=== PATIENT | female | born 1975 | race Caucasian/White ===

== ENCOUNTER 2018-01-12 09:01 | Outpatient (CLI) | payer BC ==
--- NOTE | 2018-01-12 11:52 | ULT ---
ULTRASOUND RIGHT BREAST: HISTORY: Palpable abnormality. COMPARISON: Mammogram from the same day. Mammogram from 09/16/2014 FINDINGS: There is no abnormal mass. There is a small focal island of breast tissue, corresponding to the palp able abnormality, which is cord-like, in the upper outer quadrant of the right breast. IMPRESSION: BI-RADS 2-Benign findings. Continued annual mammographic screening is recommended. POS: OFF
== END 2018-01-12 09:02 | disposition home or self-care (01) ==
LOC: BICMAMMO 09:01
PROVIDERS: ATTEND Obstetrics & Gynecology
DX: N63.11 Unspecified lump in the right breast, upper outer quadrant (principal)
CPT/HCPCS: 77066; G0279

== ENCOUNTER 2020-02-21 15:08 | Outpatient (CLI) | payer OTHER ==
--- NOTE | 2020-02-21 16:31 | MMO ---
Bilateral MAMMO Bilat Screen [facility]. CLINICAL HISTORY: Patient is 44 years old and is seen for screening. The patient has the following family history of breast cancer: grandmother, 80's, malignant (generic). The patient has no personal history of cancer. VIEWS: The views performed were: bilateral craniocaudal with tomosynthesis and bilateral mediolateral oblique with tomosynthesis. FILMS COMPARED: The present examination has been compared to prior imaging studies performed at [facility] on 09/16/2014 and 01/12/2018. This study has been interpreted with the assistance of computer-aided detection. MAMMOGRAM FINDINGS: The breasts are heterogeneously dense, which could obscure a lesion on mammography. There are no suspicious masses, suspicious calcifications, or new areas of architectural distortion. IMPRESSION: THERE IS NO MAMMOGRAPHIC EVIDENCE OF MALIGNANCY. A ROUTINE FOLLOW-UP MAMMOGRAM IN 1 YEAR IS RECOMMENDED. THE RESULTS OF THIS EXAM WERE SENT TO THE PATIENT. ACR BI-RADS Category 1 - Negative MAMMOGRAPHY NOTE: 1. A negative mammogram report should not delay a biopsy if a dominant of clinically suspicious mass is present. 2. Approximately 10% to 15% of breast cancers are not detected by mammography. 3. Adenosis and dense breasts may obscure an underlying neoplasm. Reported by: AROLDO NOGUERA MD Electonically Signed: [id number]
== END 2020-02-21 15:09 | disposition home or self-care (01) ==
LOC: BICMAMMO 15:08
PROVIDERS: ATTEND Obstetrics & Gynecology
DX: Z12.31 Encounter for screening mammogram for malignant neoplasm of breast (principal); Z80.3 Family history of malignant neoplasm of breast
CPT/HCPCS: 77063; 77067

== ENCOUNTER 2021-08-05 13:50 | Outpatient (CLI) | payer OTHER | END 2021-08-05 13:51 | disposition home or self-care (01) | LOC: BICMAMMO 13:50 | PROVIDERS: ATTEND Family Medicine | DX: Z12.31 Encounter for screening mammogram for malignant neoplasm of breast (principal); Z80.3 Family history of malignant neoplasm of breast | CPT/HCPCS: 77063; 77067 ==

== ENCOUNTER 2022-10-14 08:43 | Outpatient (CLI) | payer OTHER | END 2022-10-14 08:44 | disposition home or self-care (01) | LOC: BICMAMMO 08:43 | PROVIDERS: ATTEND Obstetrics & Gynecology | DX: Z12.31 Encounter for screening mammogram for malignant neoplasm of breast (principal); Z80.3 Family history of malignant neoplasm of breast | CPT/HCPCS: 77063; 77067 ==

== ENCOUNTER 2024-04-06 16:34 | Observation (INO) | payer OTHER, SELFPAY ==
[2024-04-06 17:05] LABS: #Basophils 0.04 10x3/uL (0.0-0.2); #Eosinophils Less than 0.03 10x3/uL (0.0-0.7); %Basophils 0.2 % (0.0-1.0); %Lymphocytes 6.5 % (21.0-51.0); %Monocytes 7.2 % (0.0-10.0); %Neutrophils 85.6 % (42.0-75.0); Hematocrit 40.4 % (36.0-47.0); Hemoglobin 13.6 g/dL (12.0-16.0); Mean Corpuscular HGB CONC 33.7 g/dL (32.0-36.0); Mean Corpuscular Hemoglobin 29.8 pg (27.0-31.0); Mean Corpuscular Volume 88.6 fL (78.0-98.0); Mean Platelet Volume 9.9 fL (7.4-10.4); Platelet Count 252 10x3/uL (130-400); RBC Distribution Width 12.3 % (11.5-14.5); Red Blood Cell (RBC) Count 4.56 mill/uL (4.20-5.40)
[2024-04-06 17:21] LABS: ALT (SGPT) 23 U/L (Less than 34); AST (SGOT) 16 U/L (11-34); Albumin 4.4 g/dL (3.1-4.5); Alkaline Phosphatase 51 U/L (40-110); Anion Gap 15 mmol/L (10-20); BUN (Urea Nitrogen) 11 mg/dL (7.0-18.7); Bilirubin, Total 0.9 mg/dL (0.3-1.2); Calc. Creatinine Clearance 0 mL/min (70-130); Calcium 9.5 mg/dL (7.8-10.44); Carbon Dioxide 23 mmol/L (22-29); Chloride 101 mmol/L (98-107); Estimated GFR 112; Globulin 3.5 g/dL (2.4-3.5); Glucose 192 mg/dL (70-105); Lipase 21 U/L (8-78); Potassium 3.9 mmol/L (3.5-5.1); Protein, Total 7.9 g/dL (6.0-8.3); Sodium 135 mmol/L (136-145)
[2024-04-06] MEDS ORDERED: Morphine 4 MG/ML VIAL ONE ×2 (18:02→19:56)
[2024-04-06] MEDS ORDERED: Ondansetron PF 4 MG/2 ML Vial ONE (18:02)
[2024-04-06 19:08] LABS: BHCG - Serum Negative (NEGATIVE); Pregs Control Background? CLEAR/WHITE (CLR/WHITE); Pregs Control Bar Appear? YES (CONTROL BAR)
[2024-04-06] MEDS ORDERED: Sodium Chloride 0.9% 100 ML ONE (20:16)
[2024-04-06] MEDS ORDERED: Piperacillin/Tazobactam 4.5 GM VIAL ONE (20:16)
[2024-04-06 20:23] LABS: Bilirubin Negative (Negative); Blood, Urine Trace (Negative); CAUTI Indications for Culture Alt mental st,lethar; Clarity Clear (Clear); Glucose, Urine (Dipstick) >=1000 mg/dL (Negative); Ketone, Urine Greater than 150 mg/dL (Negative); Leukocyte Negative Leu/uL (Negative); Nitrite Negative (Negative); Protein, Urine (Dipstick) 10 mg/dL (Neg-Trace); RBC/HPF 0-3 HPF (0-3); Specific Gravity, Urine 1.025 (1.002-1.036); Squamous Epithelial 0-3 HPF (0-3); Urobilinogen Normal mg/dL (Less than 2); WBC/HPF 0-3 HPF (0-3)
[2024-04-06 20:24] LABS: Bacteria/HPF Rare-Few HPF (None Seen)
[2024-04-06 20:25] LABS: Urine Culture Reflex No No
[2024-04-06] MEDS ORDERED: Promethazine HCl 25 MG/ML VIAL IM PRN (21:43)
[2024-04-06] MEDS ORDERED: Dextrose 50% Abboject 50 ML SYRINGE SLOW IVP PRN (21:43)
[2024-04-06] MEDS ORDERED: Acetaminophen 325 MG TAB PO PRN (21:43)
[2024-04-06] MEDS ORDERED: Glucagon 1 MG/ML KIT IM PRN (21:43)
[2024-04-06] MEDS ORDERED: Dextrose 5% in Water 1,000 ML IV PRN (21:43)
[2024-04-06] MEDS ORDERED: Insulin Lispro 100 UNIT/ML 10 ML VIAL SC PRN (22:12)
[2024-04-06] MEDS: Piperacillin/Tazobactam 3.375 GM in Sodium Chloride 0.9% 100 ML IVPB SCH (23:44)
[2024-04-06] MEDS: HYDROcodone/Acetaminophen 7.5/325 mg Tablet PO PRN (23:45)
[2024-04-07 00:07] VITALS: BMI 34.4
[2024-04-07] MEDS: Ondansetron PF 4 MG/2 ML Vial IVP PRN (00:26)
[2024-04-07] MEDS: Lactated Ringer's 1,000 ML IV SCH (04:12)
[2024-04-07 06:30] LABS: #Basophils 0.03 10x3/uL (0.0-0.2); %Basophils 0.2 % (0.0-1.0); %Eosinophils 0.3 % (0.0-10.0); %Lymphocytes 15.8 % (21.0-51.0); %Monocytes 8.3 % (0.0-10.0); %Neutrophils 74.9 % (42.0-75.0); Hematocrit 35.6 % (36.0-47.0); Hemoglobin 12.1 g/dL (12.0-16.0); Mean Corpuscular Hemoglobin 30.5 pg (27.0-31.0); Mean Corpuscular Volume 89.7 fL (78.0-98.0); Mean Platelet Volume 10.1 fL (7.4-10.4); Platelet Count 208 10x3/uL (130-400); RBC Distribution Width 12.5 % (11.5-14.5); Red Blood Cell (RBC) Count 3.97 mill/uL (4.20-5.40)
[2024-04-07 07:12] LABS: Anion Gap 9 mmol/L (10-20); BUN (Urea Nitrogen) 11 mg/dL (7.0-18.7); Calc. Creatinine Clearance 148 mL/min (70-130); Calcium 8.4 mg/dL (7.8-10.44); Carbon Dioxide 27 mmol/L (22-29); Chloride 103 mmol/L (98-107); Estimated GFR 112; Glucose 186 mg/dL (70-105); Potassium 3.7 mmol/L (3.5-5.1); Sodium 135 mmol/L (136-145)
[2024-04-07] MEDS: Morphine 2 MG/ML VIAL SLOW IVP PRN (09:19)
[2024-04-07] MEDS ORDERED: Midazolam HCl 2 mg/2 ml Vial ONE (16:54)
[2024-04-07] MEDS ORDERED: fentaNYL PF 100 MCG/2 ML SYRINGE ONE (16:54)
[2024-04-07] MEDS ORDERED: Dexamethasone 4 mg/ml Vial ONE (16:54)
[2024-04-07] MEDS ORDERED: Ondansetron PF 4 MG/2 ML Vial ONE (16:54)
[2024-04-07] MEDS ORDERED: SUGAMMADEX SODIUM 200 MG/2 ML VIAL ONE (16:54)
[2024-04-07] MEDS ORDERED: PROPOFOL 20 ML ONE (16:54)
[2024-04-07] MEDS ORDERED: Rocuronium Bromide 10 MG/ML (10ML VIAL) ONE (16:54)
[2024-04-07] MEDS ORDERED: Lidocaine 1% PF 5 ML VIAL ONE (16:54)
[2024-04-07] MEDS ORDERED: CEFAZOLIN 1 GM VIAL ONE ×2 (17:04→18:27)
[2024-04-07] MEDS ORDERED: SUCCINYLCHOLINE/SOD CL,ISO/PF 200 MG/10 ML SYRINGE FS ONE (17:57)
[2024-04-07] MEDS ORDERED: Bupivacaine 0.25% HCL 30 ML VIAL ONE (18:00)
[2024-04-07] MEDS ORDERED: EPINEPHrine 1 MG/ML VIAL ONE (18:00)
[2024-04-07] MEDS ORDERED: HYDROmorphone 2 MG/ML VIAL SLOW IVP PRN (18:12)
[2024-04-07] MEDS ORDERED: Ondansetron HCl/PF 4 MG/2 ML Vial IVP PRN (18:12)
[2024-04-07] MEDS ORDERED: Promethazine HCl 25 MG/ML VIAL IM PRN ×2 (18:12→18:58)
[2024-04-07] MEDS ORDERED: Dextrose 50% Abboject 50 ML SYRINGE SLOW IVP PRN (18:58)
[2024-04-07] MEDS ORDERED: Glucagon 1 MG/ML KIT IM PRN (18:58)
[2024-04-07] MEDS ORDERED: hydrALAZINE 20 MG/ML VIAL SLOW IVP PRN (18:58)
[2024-04-07] MEDS ORDERED: Dextrose 5% in Water 1,000 ML IV PRN (18:58)
[2024-04-07] MEDS ORDERED: HYDROcodone/Acetaminophen 10/325 mg Tablet PO PRN (18:58)
[2024-04-07] MEDS ORDERED: Ondansetron PF 4 MG/2 ML Vial IVP PRN (18:58)
[2024-04-07] MEDS ORDERED: Ipratropium/Albuterol 3 ML NEB NEB PRN (18:58)
[2024-04-07] MEDS ORDERED: fentaNYL 50 mcg/mL 1 mL Vial ONE ×2 (19:07→19:22)
[2024-04-07] MEDS: Famotidine 20 MG TAB PO SCH (21:11)
[2024-04-07] MEDS: HYDROcodone/Acetaminophen 10/325 mg Tablet PO PRN (21:12)
[2024-04-07] MEDS: Famotidine/PF 20 mg/2ml Vial SLOW IVP SCH (21:12)
[2024-04-07] MEDS ORDERED: Piperacillin/Tazobactam 3.375 GM in Sodium Chloride 0.9% 100 ML IVPB SCH (23:00)
[2024-04-08] MEDS: Ketorolac Tromethamine 30 MG (1 mL) VIAL IVP SCH (00:23)
[2024-04-08 08:24] LABS: #Basophils Less than 0.03 10x3/uL (0.0-0.2); #Eosinophils Less than 0.03 10x3/uL (0.0-0.7); %Basophils 0.1 % (0.0-1.0); %Monocytes 4.5 % (0.0-10.0); %Neutrophils 81.9 % (42.0-75.0); Hematocrit 33.4 % (36.0-47.0); Hemoglobin 11.3 g/dL (12.0-16.0); Mean Corpuscular HGB CONC 33.8 g/dL (32.0-36.0); Mean Corpuscular Hemoglobin 30.2 pg (27.0-31.0); Mean Corpuscular Volume 89.3 fL (78.0-98.0); Mean Platelet Volume 9.8 fL (7.4-10.4); Platelet Count 214 10x3/uL (130-400); RBC Distribution Width 12.4 % (11.5-14.5); Red Blood Cell (RBC) Count 3.74 mill/uL (4.20-5.40)
[2024-04-08 08:38] LABS: Anion Gap 12 mmol/L (10-20); BUN (Urea Nitrogen) 11 mg/dL (7.0-18.7); Calc. Creatinine Clearance 162 mL/min (70-130); Calcium 8.4 mg/dL (7.8-10.44); Carbon Dioxide 25 mmol/L (22-29); Chloride 104 mmol/L (98-107); Estimated GFR 114; Glucose 139 mg/dL (70-105); Potassium 3.6 mmol/L (3.5-5.1); Sodium 137 mmol/L (136-145)
[2024-04-08] MEDS: Enoxaparin 40 MG (0.4 mL) SYRINGE SC SCH (09:07)
[2024-04-08 10:45] VITALS: BP 112/75; TEMP 97.5
== END 2024-04-08 12:15 | disposition home or self-care (01) ==
LOC: ERS 16:34 → SURG A 21:20
PROVIDERS: ADMIT Surgery; ATTEND Surgery
PROC: 0DTJ4ZZ Resection of Appendix, Percutaneous Endoscopic Approach (ICD-10-PCS; principal; 2024-04-08)
DX: K35.32 Acute appendicitis with perforation, localized peritonitis, and gangrene, without abscess (principal); N28.1 Cyst of kidney, acquired; K52.9 Noninfective gastroenteritis and colitis, unspecified; K42.9 Umbilical hernia without obstruction or gangrene; Z79.899 Other long term (current) drug therapy
CPT/HCPCS: 36415; 36416; 74176; 80048; 80053; 81001; 83605; 83690; 84703; 85025; 87070; 87076; 87205; 88304; 96374; 96375; 96376; A4649; G0378; J0171; J0665; J0690; J1100; J1650; J1885; J2250; J2270; J2272; J2405; J2543; J2704; J3010; J7120

== ENCOUNTER 2024-04-18 16:42 | Emergency (ER) | payer OTHER ==
[2024-04-18] MEDS ORDERED: Acetaminophen 500 MG TAB ONE (17:27)
== END 2024-04-18 19:59 | disposition home or self-care (01) ==
LOC: ERS 16:42
DX: M79.652 Pain in left thigh (principal)